=== PATIENT | male | born 1990 | race Caucasian/White ===

== ENCOUNTER 2020-08-29 06:49 | Emergency (ER) | payer BC ==
[~2020-08-29 06:49] MED LIST: NORFLEX 100 MG100 MG PO; PREDNISONE 50 M50 MG PO; Voltaren Gel 1 % TOP
[2020-08-29] MEDS ORDERED: IBUPROFEN600 MG PO (08:32)
== END 2020-08-29 08:50 | disposition home or self-care (01) ==
LOC: ER1 06:49
DX: S60.221A Contusion of right hand, initial encounter (principal); W22.8XXA Striking against or struck by other objects, initial encounter; Y92.009 Unspecified place in unspecified non-institutional (private) residence as the place of occurrence of the external cause; Z88.1 Allergy status to other antibiotic agents
CPT/HCPCS: 29125; 73130; 99283